=== PATIENT | female | born 1945 | race Caucasian/White ===

== ENCOUNTER 2021-03-06 17:53 | Emergency (ER) | payer MEDICARE ==
[~2021-03-06] VITALS: Ht 157.5 cm; Wt 75.0 kg
[2021-03-06 18:34] LABS: HEMATOCRIT 37.3 % (37.0-47.0); HEMOGLOBIN 12.5 g/dl (12.0-16.0); IMMATURE GRANULOCYTES 0.2 % (0.0-5.0); MEAN CELL VOLUME 95.4 fL CALC (80.0-100.0); MEAN CORPUSCULAR HGB CONC 33.5 g/dL CAL (32.0-36.0); NEUT# 4.59 thou/uL (2.00-7.15); RED BLOOD COUNT 3.91 mill/uL (4.20-5.60); RED CELL DISTRI WIDTH 12.3 % (11.5-15.5)
[2021-03-06 18:50] LABS: INTERNATIONAL NORMALIZED RATIO 1.1 RATIO (0.7-1.3)
[2021-03-06 18:51] LABS: ALBUMIN 4.4 g/dL (3.2-5.0); ALKALINE PHOSPHATASE 56 u/l (38-126); ANION GAP 11 (6-22 (CALC)); BILIRUBIN, TOTAL 0.5 mg/dL (0.0-1.4); BUN 23 mg/dL (8-23); BUN/CREATININE RATIO 28 (12-20 (CALC)); CARBON DIOXIDE 29 mmol/l (22-30); CHLORIDE 103 mmol/l (95-108); CREATININE 0.8 mg/dL (0.5-1.0); GFR > 60 ML/MIN (>=60 (CALC)); GFR FOR AFR.AMER. > 60 ML/MIN (>=60 (CALC)); POTASSIUM 4.2 mmol/l (3.5-5.1); SGOT/AST 53 u/l (9-36); SODIUM 139 mmol/l (137-146); TOTAL PROTEIN 7.2 g/dL (6.3-8.2)
[2021-03-06 19:08] LABS: URINE BILIRUBIN - DIPSTICK NEGATIVE (NEGATIVE); URINE BLOOD DIPSTICK NEGATIVE (NEGATIVE); URINE COLOR YELLOW; URINE GLUCOSE - DIPSTICK NEGATIVE (NEGATIVE); URINE KETONE TRACE mg/dL (NEGATIVE); URINE LEUK ESTERASE TRACE (NEGATIVE); URINE PROTEIN - DIPSTICK NEGATIVE (NEG-TRACE); URINE UROBILINOGEN - DIPSTICK 0.2 E.U./dL (0.2)
[2021-03-06 19:12] LABS: URINE NITRITE - DIPSTICK POSITIVE (Negative)
[2021-03-06 19:21] LABS: URINE BACTERIA MODERATE hpf; URINE RBC 0-2 RBC/hpf (0-5); URINE SQUAMOUS EPITHELIAL CELL FEW EPI/hpf (0-FEW)
[2021-03-06] MEDS ORDERED: MEMANTINE HYDROC5 MG PO (20:19)
[2021-03-06] MEDS ORDERED: CLOPIDOGREL75 MG PO (20:19)
[2021-03-06] MEDS ORDERED: LOSARTAN POTASS50 MG PO (20:19)
[2021-03-06] MEDS ORDERED: EXELON9.5 MG/24 TOP (20:20)
[2021-03-06] MEDS ORDERED: SIMVASTATIN40 MG PO (20:21)
[2021-03-06] MEDS ORDERED: TRAZODONE50 MG PO (20:21)
[2021-03-06] MEDS ORDERED: TRINTELLIX10 MG PO (20:22)
[2021-03-06 22:30] VITALS: BP 147/97
--- NOTE | 2021-03-08 10:49 | NUR ---
Final urine culture shows E.coli. Pt transferred to [facility]. Results faxed to HIRAM Ng at [phone]. No follow up warranted.
== END 2021-03-06 22:14 | disposition short-term general hospital (02) ==
LOC: ED 17:53 → ED-I 19:30 → ED 22:14
PROVIDERS: Family Medicine
DX: R53.83 Other fatigue (principal); R40.4 Transient alteration of awareness; F03.90 Unspecified dementia, unspecified severity, without behavioral disturbance, psychotic disturbance, mood disturbance, and anxiety; I10 Essential (primary) hypertension; E78.5 Hyperlipidemia, unspecified; R82.71 Bacteriuria
CPT/HCPCS: Q9967

== ENCOUNTER 2021-03-17 18:24 | Observation (INO) | payer MEDICARE, OTHER ==
[~2021-03-17] VITALS: Ht 157.5 cm; Wt 58.0 kg
[~2021-03-17 18:24] MED LIST: CLOPIDOGREL75 MG PO; EXELON9.5 MG/24 TOP; LOSARTAN POTASS50 MG PO; MEMANTINE HYDROC5 MG PO; SIMVASTATIN40 MG PO; TRAZODONE50 MG PO; TRINTELLIX10 MG PO
--- NOTE | 2021-03-17 18:24 | NUR ---
PATIENT TO ROOM VIA EMS STRETCHER. HIRAM COTO CALLED STROKE ALERT.
--- NOTE | 2021-03-17 18:28 | NUR ---
PATIENT TO CT VIA STRETCHER IN STABLE CONDITION. PATIENT UNABLE TO FOLLOW COMMANDS AND APHASIC.
--- NOTE | 2021-03-17 18:38 | NUR ---
DR MARAVILLA ON SCREEN AT THIS TIME AND REVIEWING PATIENT HISTORY AND LAST VISIT SHE EXPERIENCED THE SAME SYMPTOMS AND WAS TRANSFERRED TO [facility]. [facility] COMPLETED.
[2021-03-17 19:00] LABS: HEMATOCRIT 38.2 % (37.0-47.0); HEMOGLOBIN 12.7 g/dl (12.0-16.0); IMMATURE GRANULOCYTES 0.3 % (0.0-5.0); MEAN CELL VOLUME 98.2 fL CALC (80.0-100.0); MEAN CORPUSCULAR HGB 32.6 pG CALC (26.0-32.0); MEAN CORPUSCULAR HGB CONC 33.2 g/dL CAL (32.0-36.0); NEUT# 4.36 thou/uL (2.00-7.15); RED BLOOD COUNT 3.89 mill/uL (4.20-5.60); RED CELL DISTRI WIDTH 12.3 % (11.5-15.5)
--- NOTE | 2021-03-17 19:05 | NUR ---
PATIENT LEFT WITH HIRAM COTO IN CT SCAN WHILE TELESPECIALIST ATTEMPTING TO CONTACT DAUGHTER.
[2021-03-17 19:15] LABS: PROTHROMBIN TIME 10.3 SECONDS (9.0-12.5)
[2021-03-17 19:17] LABS: ALBUMIN 4.3 g/dL (3.2-5.0); ALKALINE PHOSPHATASE 62 u/l (38-126); ANION GAP 14 (6-22 (CALC)); BILIRUBIN, TOTAL 0.6 mg/dL (0.0-1.4); BUN 22 mg/dL (8-23); BUN/CREATININE RATIO 23 (12-20 (CALC)); CARBON DIOXIDE 27 mmol/l (22-30); CHLORIDE 103 mmol/l (95-108); CREATININE 0.9 mg/dL (0.5-1.0); GFR > 60 ML/MIN (>=60 (CALC)); GFR FOR AFR.AMER. > 60 ML/MIN (>=60 (CALC)); POTASSIUM 3.9 mmol/l (3.5-5.1); SGOT/AST 23 u/l (9-36); SODIUM 140 mmol/l (137-146); TOTAL PROTEIN 7.2 g/dL (6.3-8.2)
--- NOTE | 2021-03-17 20:01 | NUR ---
PT LAYING COMFORTABLY ON ED COT
[2021-03-17 20:37] LABS: URINE BILIRUBIN - DIPSTICK NEGATIVE (NEGATIVE); URINE BLOOD DIPSTICK NEGATIVE (NEGATIVE); URINE COLOR YELLOW; URINE GLUCOSE - DIPSTICK NEGATIVE (NEGATIVE); URINE KETONE TRACE mg/dL (NEGATIVE); URINE LEUK ESTERASE NEGATIVE (NEGATIVE); URINE PH 5.5 (4.5-8.0); URINE PROTEIN - DIPSTICK NEGATIVE (NEG-TRACE); URINE SPECIFIC GRAVITY >=1.030; URINE UROBILINOGEN - DIPSTICK 0.2 E.U./dL (0.2)
[2021-03-17 20:40] LABS: URINE NITRITE - DIPSTICK NEGATIVE (Negative)
--- NOTE | 2021-03-17 21:09 | NUR ---
ATTEMPTED TO CALL REPORT; RN UPSTAIRS TO CALL BACK ONCE AVAILABLE
--- NOTE | 2021-03-17 21:13 | NUR ---
TELEMETRY PLACED ON PT
--- NOTE | 2021-03-17 21:20 | NUR ---
REPORT GIVEN TO NIALL GANDHI [id number]
--- NOTE | 2021-03-17 21:25 | NUR ---
TO FLOOR VIA STRETCHER BY HIRAM TANG.
[2021-03-17 21:49] VITALS: BP 146/62
--- NOTE | 2021-03-17 21:49 | NUR ---
PT ARRIVED TO MED SURG UNIT VIA STRETCHER ACCOMPANIED BY ED NURSE. PT APPEARS TO BE STABLE AT THIS TIME. RN SCHOOL EQUAL AND MODERATELY STRONG, RLE DROPS TO BED WITH NO EFFORT. PT SPEECH APPEARS APHASIC. ED NURSE REPORTS THAT THE PT IS NORMALLY AMS AND LIVES AT AN [facility]IST[facility]. PT TRANSFERRED TO THE BED FROM THE STRETCHER, APPEARS CALM AND PLEASANTLY CONFUSED. WE DID ATTEMPT TO ORIENT HER TO THE BED, ROOM, CALL SYSTEM, LIGHTS AND TV. TELEVISION TURNED TO [employer] SHOW, REPORTED BY ED NURSE TO BE HER PREFERENCE, SHE APPEARS TO BE WATCHING THIS NOW WITH CALL LIGHT IN PLACE. ASSESSMENT HAS ALSO BEEN COMPLETED, MILD REDNESS TO COCCYX AREA/PICTURE PLACED IN CHART. PT HAS MILD RASH APPEARANCE TO LOWER EXT RYDER AND PELVIC AREA AND APPEARS TO BE ITCHY, WILL NOTIFY PHYSICIAN.
[2021-03-18] VITALS: BP 139/58
--- NOTE | 2021-03-18 | NUR ---
PT REASSESSED NEUROLOCICALLY, CISCO ADMINISTRATOR ARE EQUAL, PT IS ABLE TO LIFT BLE W/OUT DRIFT DOWN TO THE BED. SHE IS STILL MOSTLY NON-VERBAL, UNABLE TO TELL ME HER NAME, BUT SHE DID SAY "YES" IN RESPONSE TO BLANKET PREFERENCE. BED ALARM WAS SOUNDED ATTEMPTING TO GET UP, NEEDS DISCUSSED, SHE APPEARS CONFUSED TO CIRCUMSTANCES.
[2021-03-18 04:00] VITALS: BP 140/64
[2021-03-18 05:23] LABS: HEMATOCRIT 33.4 % (37.0-47.0); HEMOGLOBIN 11.7 g/dl (12.0-16.0); MEAN CELL VOLUME 93.8 fL CALC (80.0-100.0); MEAN CORPUSCULAR HGB 32.9 pG CALC (26.0-32.0); RED BLOOD COUNT 3.56 mill/uL (4.20-5.60); RED CELL DISTRI WIDTH 12.1 % (11.5-15.5)
[2021-03-18 05:37] LABS: ANION GAP 12 (6-22 (CALC)); BUN 23 mg/dL (8-23); BUN/CREATININE RATIO 32 (12-20 (CALC)); CARBON DIOXIDE 26 mmol/l (22-30); CHLORIDE 106 mmol/l (95-108); CREATININE 0.7 mg/dL (0.5-1.0); GFR > 60 ML/MIN (>=60 (CALC)); GFR FOR AFR.AMER. > 60 ML/MIN (>=60 (CALC)); MAGNESIUM 1.9 mg/dL (1.6-2.3); POTASSIUM 3.7 mmol/l (3.5-5.1); SODIUM 140 mmol/l (137-146)
--- NOTE | 2021-03-18 09:00 | NUR ---
PT SEEN AWAKE, ALERT, ORIENTED TO SELF ONLY. LUNGS CLEAR, RA. PT WAS ATTEMPTING TO GET OOB THIS MORNING, DOING BETTER AFTER TABLE POSITIONED OVER BED. NO DISTRESS. PT REQUIRES FEEDING PER INATTENTION TO TRAY.
[2021-03-18 11:15] VITALS: BP 116/67
--- NOTE | 2021-03-18 12:59 | NUR ---
PT SEEN BY DR AGUSTIN THIS MORNING AND ALSO HOSPICE NURSE THIS AFTERNOON. PT WILL BE RETURNED TO [facility] THIS AFTERNOON WITH HOSPICE INVOLVED THERE. PT REMAINS CONFUSED, NOT AGGRESSIVE, BUT VERY FORGETFUL.
[2021-03-18 14:57] VITALS: BP 118/61
--- NOTE | 2021-03-18 16:29 | NUR ---
PT REMINDED TO STAY IN THE BED, SEEN EDGING TOWARD SIDE. PT IN NO DISTRESS SHE RESTS IN THE BED.
[2021-03-18 19:26] VITALS: BP 122/65
--- NOTE | 2021-03-18 20:10 | NUR ---
1899-REPORT RECEIVED FROM MIGUE STRAUSS. 1930-FOUND PATIENT ALERT TO SELF ONLY, PLEASANTLY CONFUSE, MEAL TRADE AT BEDSIDE, ATTEMPTED TO FEED HER, REFUSED FOOD. MACHUCA CATHETER IN PLACE, NO KINKS NOTED, DRAINING TO GRAVITY, ON TELEMETRY AND OXYGEN 2LNC. RESP ARE EVEN AND UNLABORED, NO S/S OF DISTRESS NOTED, WILL MONITOR CLOSEY, BED ALARM ON.
--- NOTE | 2021-03-18 20:59 | NUR ---
medicated with pm meds; gave crushed pill with vanilla pudding, patient did not want to swallow pill whole. Patient refused to eat more pudding.
--- NOTE | 2021-03-18 21:30 | NUR ---
waite catheter removed, 400cc output noted in waite bag, perineal care provided, repositioned, and placed clean chucks underneath, tolerated activity well, will continue to monitor closely, bed alarm on.
--- NOTE | 2021-03-18 21:40 | NUR ---
dimension warehouse supervisor contanted [facility] (transport) for an update. Per dimension warehouse supervisor, transport is on their way to [place] from [place].
--- NOTE | 2021-03-18 21:43 | NUR ---
patient's daughter ( Sean) called for an update, update provided at this time.
--- NOTE | 2021-03-18 22:15 | NUR ---
[facility] IS HERE GETTING READY PATIENT TO TRANSPORT; IV SITE REMOVED AND TELEMETRY, PATIENT TOLERATED ACTIVITY WELL. REPORT CALLED TO [facility]. PATIENT'S DAUGHTER (TR) NOTIFIED OF PATIENT GETTING TRANSPORT TO [facility] AT THIS TIME. PATIENT IS CALM, PLEASANTLY CONFUSED, NO S/S OF DISTRESS NOTED, NO PAIN REPORTED, MACHUCA REMOVED AT 2130, PATIENT HAS NOT VOIDED YET. DENIES ANY NEED TO VOID AT THIS TIME.
--- NOTE | 2021-03-18 22:20 | NUR ---
PATIENT LEAVING AT THIS TIME THE HOSPITAL BY [facility]. CALM AND COOPERATIVE, PLEASANTLY CONFUSED. ON ROOM AIR, NO S/S OF DISTRESS NOTED.
== END 2021-03-18 22:21 | disposition hospice, inpatient (51) ==
LOC: ED 18:24 → ED-I 19:59 → ED 20:08 → MS2 20:09
PROVIDERS: ADMIT Hospitalist; ATTEND Hospitalist
PROC: 0T9B70Z Drainage of Bladder with Drainage Device, Via Natural or Artificial Opening (ICD-10-PCS; principal; 2021-03-17)
DX: R41.82 Altered mental status, unspecified (principal); G30.0 Alzheimer's disease with early onset; F02.80 Dementia in other diseases classified elsewhere, unspecified severity, without behavioral disturbance, psychotic disturbance, mood disturbance, and anxiety; I10 Essential (primary) hypertension; I25.10 Atherosclerotic heart disease of native coronary artery without angina pectoris; E03.9 Hypothyroidism, unspecified; E78.5 Hyperlipidemia, unspecified; Z51.5 Encounter for palliative care; Z66 Do not resuscitate; Z79.02 Long term (current) use of antithrombotics/antiplatelets; Z20.822 Contact with and (suspected) exposure to COVID-19

== ENCOUNTER 2022-04-20 11:02 | Emergency (ER) | payer MEDICARE, OTHER ==
[2022-04-20] VITALS (10 sets, daily range): BP systolic 126–159; BP diastolic 58–86
[~2022-04-20] VITALS: Ht 157.5 cm; Wt 45.5 kg
[2022-04-20] MEDS ORDERED: QUETIAPINE FUMA25 MG PO (11:32)
[2022-04-20] MEDS ORDERED: TRINTELLIX10 MG PO (11:33)
[2022-04-20] MEDS ORDERED: ASPIRIN81 MG PO (11:34)
[2022-04-20] MEDS ORDERED: BUSPIRONE5 MG PO (11:34)
[2022-04-20] MEDS ORDERED: MEMANTINE HYDROC5 MG PO (11:35)
[2022-04-20] MEDS ORDERED: SIMVASTATIN40 MG PO (11:36)
[2022-04-20] MEDS ORDERED: TRAZODONE50 MG PO (11:37)
[2022-04-20] MEDS ORDERED: KEFLEX500 MG PO (11:37)
== END 2022-04-20 14:22 | disposition home or self-care (01) ==
LOC: ED 11:02
PROC: 0HQ0XZZ Repair Scalp Skin, External Approach (ICD-10-PCS; principal; 2022-04-20)
DX: S01.01XA Laceration without foreign body of scalp, initial encounter (principal); I10 Essential (primary) hypertension; E78.5 Hyperlipidemia, unspecified; F03.90 Unspecified dementia, unspecified severity, without behavioral disturbance, psychotic disturbance, mood disturbance, and anxiety; W06.XXXA Fall from bed, initial encounter; Y92.003 Bedroom of unspecified non-institutional (private) residence as the place of occurrence of the external cause

== ENCOUNTER 2022-05-03 14:46 | Emergency (ER) | payer MEDICARE, OTHER ==
[~2022-05-03] VITALS: Ht 157.5 cm; Wt 47.0 kg
[~2022-05-03 14:46] MED LIST changes: +ASPIRIN81 MG PO; +BUSPIRONE5 MG PO; +KEFLEX500 MG PO; +QUETIAPINE FUMA25 MG PO
[2022-05-03 15:05] VITALS: BP 128/71
== END 2022-05-03 15:11 | disposition home or self-care (01) ==
LOC: ED 14:46
DX: S01.01XD Laceration without foreign body of scalp, subsequent encounter (principal); F03.90 Unspecified dementia, unspecified severity, without behavioral disturbance, psychotic disturbance, mood disturbance, and anxiety; I10 Essential (primary) hypertension; E78.5 Hyperlipidemia, unspecified; X58.XXXD Exposure to other specified factors, subsequent encounter

== ENCOUNTER 2022-09-21 12:44 | Emergency (ER) | payer MEDICARE, OTHER ==
[2022-09-21] VITALS (9 sets, daily range): BP systolic 127–158; BP diastolic 68–100
[~2022-09-21] VITALS: Ht 157.5 cm; Wt 47.6 kg
== END 2022-09-21 15:30 | disposition home or self-care (01) ==
LOC: ED 12:44
DX: M25.551 Pain in right hip (principal); I10 Essential (primary) hypertension; F03.90 Unspecified dementia, unspecified severity, without behavioral disturbance, psychotic disturbance, mood disturbance, and anxiety; E78.5 Hyperlipidemia, unspecified

== ENCOUNTER 2023-01-22 10:59 | Emergency (ER) | payer MEDICARE, OTHER ==
[~2023-01-22] VITALS: Ht 157.5 cm; Wt 48.0 kg
[2023-01-22] VITALS (11 sets, daily range): BP systolic 97–134; BP diastolic 38–86
[2023-01-22 12:10] LABS: BASO% 0.2 % (0-3); EOS% 0.3 % (0-8); HEMATOCRIT 42.9 % (37.0-47.0); HEMOGLOBIN 13.9 g/dl (12.0-16.0); IMMATURE GRANULOCYTES 0.3 % (0.0-5.0); LYMPH% 29.3 % (15-41); MEAN CELL VOLUME 99.3 fL CALC (80.0-100.0); MEAN CORPUSCULAR HGB 32.2 pG CALC (26.0-32.0); MEAN CORPUSCULAR HGB CONC 32.4 g/dL CAL (32.0-36.0); NEUT# 3.57 thou/uL (2.00-7.15); NEUT% 61.9 % (42-76); RED BLOOD COUNT 4.32 mill/uL (4.20-5.60); RED CELL DISTRI WIDTH 13.1 % (11.5-15.5)
[2023-01-22 12:13] LABS: ALBUMIN 4.1 g/dL (3.2-5.0); ALKALINE PHOSPHATASE 47 u/l (38-126); ANION GAP 10 (6-22 (CALC)); BILIRUBIN, TOTAL 0.7 mg/dL (0.02-1.3); BUN 17 mg/dL (8-23); BUN/CREATININE RATIO 26 (12-20 (CALC)); CARBON DIOXIDE 32 mmol/l (22-30); CHLORIDE 101 mmol/l (95-108); CREATININE 0.7 mg/dL (0.5-1.0); GFR FOR AFR.AMER. > 60 ML/MIN (>=60 (CALC)); GFR OTHER RACES > 60 ML/MIN (>=60 (CALC)); POTASSIUM 4.3 mmol/l (3.5-5.1); SGOT/AST 35 u/l (9-36); SODIUM 139 mmol/l (137-146); TOTAL PROTEIN 6.8 g/dL (6.3-8.2)
[2023-01-22] MEDS ORDERED: DULCOLAX5 MG PO (15:49)
== END 2023-01-22 16:05 | disposition home or self-care (01) ==
LOC: ED 10:59
PROVIDERS: Family Medicine
PROC: 0HQ0XZZ Repair Scalp Skin, External Approach (ICD-10-PCS; principal; 2023-01-22)
DX: S00.03XA Contusion of scalp, initial encounter (principal); S00.01XA Abrasion of scalp, initial encounter; F03.90 Unspecified dementia, unspecified severity, without behavioral disturbance, psychotic disturbance, mood disturbance, and anxiety; I10 Essential (primary) hypertension; E78.5 Hyperlipidemia, unspecified; W19.XXXA Unspecified fall, initial encounter; Y92.129 Unspecified place in nursing home as the place of occurrence of the external cause; K59.00 Constipation, unspecified